=== PATIENT | female | born 1945 | race Caucasian/White ===

== ENCOUNTER 2018-03-10 08:14 | Emergency (ER) | payer MEDICARE, OTHER ==
[~2018-03-10] VITALS: Ht 170.2 cm; Wt 99.8 kg
[2018-03-10] MEDS ORDERED: DEXAMETHASONE 0.5 MG/5 ML ELIX PO SCH (08:30)
[2018-03-10] MEDS ORDERED: ACETAMINOPHEN/CODEINE 300MG - 30MG TAB PO ONE (08:30)
[2018-03-10] MEDS ORDERED: DEXAMETHASONE 4 MG TAB PO ONE (08:45)
[2018-03-10 08:55] LABS: STREPTOCOCCUS GRP A ANTIGEN NEGATIVE (NEGATIVE)
[2018-03-10 09:07] LABS: INFLUENZAE A&B ANTIGEN (RAPID) NEGATIVE (NEGATIVE)
[2018-03-10] MEDS ORDERED: TYLENOL WITH C1 EACH PO (10:01)
[2018-03-10 10:06] VITALS: BP 143/79
== END 2018-03-10 10:12 | disposition home or self-care (01) ==
LOC: ER 08:14
DX: R05 Cough (principal); J02.9 Acute pharyngitis, unspecified
CPT/HCPCS: 83518; 87070; 87400; 99283; J8540

== ENCOUNTER → 2020-07-01 | Outpatient (CLI) | payer MEDICARE ==
[~2020-07-01] MED LIST: TYLENOL WITH C1 EACH PO
== END ==
LOC: US 13:39
PROVIDERS: ATTEND Family Medicine
DX: R29.898 Other symptoms and signs involving the musculoskeletal system (principal)
CPT/HCPCS: 76882